=== PATIENT | female | born 1950 | race African-American/Black ===

== ENCOUNTER 2024-10-28 15:34 | Emergency (ER) | payer MEDICARE ==
[~2024-10-28] VITALS: Ht 160 cm; Wt 77.1 kg
[2024-10-28 16:00] VITALS: TEMP 97.6
[2024-10-28 16:12] VITALS: PULSE 66; RESP 17; O2SAT 97
== END 2024-10-28 17:53 | disposition home or self-care (01) ==
LOC: ER 16:03
DX: S40.012A Contusion of left shoulder, initial encounter (principal); W18.39XA Other fall on same level, initial encounter; Y92.89 Other specified places as the place of occurrence of the external cause; I10 Essential (primary) hypertension; E11.9 Type 2 diabetes mellitus without complications; D64.9 Anemia, unspecified; E78.5 Hyperlipidemia, unspecified; F79 Unspecified intellectual disabilities; G80.9 Cerebral palsy, unspecified; K21.9 Gastro-esophageal reflux disease without esophagitis
CPT/HCPCS: 99282